=== PATIENT | female | born 1985 | race African-American/Black ===

== ENCOUNTER 2018-04-17 10:16 | Inpatient (IN) | payer OTHER ==
[2018-04-17 12:10] LABS: ADD MAN DIFF? NO
[2018-04-17] MEDS ORDERED: MIDAZOLAM 1 MG/ML 2 ML INJ (12:13)
[2018-04-17] MEDS ORDERED: METOCLOPRAMIDE 10 MG INJ (12:13)
[2018-04-17] MEDS ORDERED: ONDANSETRON 4 MG INJ (12:13)
[2018-04-17] MEDS ORDERED: ROCURONIUM 50 MG INJ (12:13)
[2018-04-17] MEDS ORDERED: PROPOFOL 20 ML ×2 (12:13→13:57)
[2018-04-17 12:21] LABS: BASOPHILS % 0.4 % (0.0-2.0); EOSINOPHILS # 0.1 10^3/ul (0.0-0.5); EOSINOPHILS % 0.7 % (0.0-7.0); HEMATOCRIT 41.3 % (37.0-47.0); HEMOGLOBIN 13.8 g/dl (12.0-16.0); LYMPHOCYTES # 2.5 10^3/ul (0.8-2.9); MEAN CORPUSCULAR HEMOGLOBIN 31.3 pg (29.0-33.0); MEAN CORPUSCULAR HGB CONC 33.4 g/dl (32.0-37.0); MEAN CORPUSCULAR VOLUME 93.7 fl (82.0-101.0); MEAN PLATELET VOLUME 11.8 fl (7.4-10.4); MONOCYTE # 0.5 10^3/ul (0.3-0.9); MONOCYTES % 6.3 % (0.0-11.0); NEUTROPHILS % 61.4 % (39.0-77.0); PLATELET COUNT 210 10^3/UL (140-415); RED BLOOD COUNT 4.41 10^6/ul (4.20-5.40); RED CELL DISTRIBUTION WIDTH 11.9 % (11.5-14.5)
[2018-04-17 12:21] LABS: WHITE BLOOD COUNT 8.2 10^3/ul (4.8-10.8)
[2018-04-17] MEDS ORDERED: CEFAZOLIN 1 GM INJ (12:23)
[2018-04-17] MEDS ORDERED: FENTAnyl 50 MCG/ML VIAL (12:30)
[2018-04-17 12:36] LABS: ALANINE AMINOTRANSFERASE 25 IU/L (13-69); ALBUMIN 3.7 g/dl (3.3-4.9); ALBUMIN/GLOBULIN RATIO 1.15; ALKALINE PHOSPHATASE 69 IU/L (42-121); ANION GAP 11 (8-16); ASPARTATE AMINO TRANSFERASE 24 IU/L (15-46); BILIRUBIN,INDIRECT 0.2 mg/dl (0-1.1); BILIRUBIN,TOTAL 0.2 mg/dl (0.2-1.3); BLOOD UREA NITROGEN 9 mg/dl (7-20); CALCIUM 8.9 mg/dl (8.4-10.2); CARBON DIOXIDE 21 mmol/L (21-31); CHLORIDE 112 mmol/L (97-110); CREATININE 0.63 mg/dl (0.44-1.00); GLUCOSE 86 mg/dl (70-220); POTASSIUM 3.8 mmol/L (3.5-5.1); SODIUM 140 mmol/L (135-144); TOTAL PROTEIN 6.9 g/dl (6.1-8.1)
[2018-04-17 12:38] LABS: INR 0.93; PROTIME 12.6 Sec (11.9-14.9)
[2018-04-17 12:39] LABS: PARTIAL THROMBOPLASTIN TIME 32.4 Sec (25.0-35.0)
[2018-04-17] MEDS ORDERED: LABETALOL HCL 20MG INJ (12:45)
[2018-04-17] MEDS ORDERED: THROMBIN 5000 UNIT VIAL (12:53)
[2018-04-17] MEDS ORDERED: HYDROmorphONE 2 MG/ML SYG (12:54)
[2018-04-17 12:58] LABS: ADD UMIC YES; UR ASCORBIC ACID NEGATIVE (NEGATIVE); UR BILIRUBIN (Dip) NEGATIVE (NEGATIVE); UR BLOOD (Dip) 3+ mg/dL (NEGATIVE); UR CLARITY CLEAR (CLEAR); UR COLOR YELLOW (YELLOW); UR GLUCOSE (Dip) NEGATIVE (NEGATIVE); UR KETONES (Dip) NEGATIVE (NEGATIVE); UR LEUKOCYTE ESTERASE (Dip) NEGATIVE Leu/ul (NEGATIVE); UR MUCUS FEW /HPF (NONE SEEN); UR NITRITE (Dip) NEGATIVE (NEGATIVE); UR RBC 0 /HPF (0-5); UR SPECIFIC GRAVITY (Dip) 1.024 (1.003-1.030); UR SQUAMOUS EPITHELIAL CELL FEW /HPF (FEW); UR TOTAL PROTEIN (Dip) NEGATIVE (NEGATIVE); UR UROBILINOGEN (Dip) 1+ mg/dL (NEGATIVE); UR WBC 1 /HPF (0-5)
[2018-04-17] MEDS: LIDOCAINE 1%/EPI 30 ML INJ (13:03)
[2018-04-17] MEDS: GELATIN SIZE 100 SPONGE (13:03)
[2018-04-17] MEDS: POLYMYXIN/BACITRACIN 1L IRRIG IRR (13:03)
[2018-04-17] MEDS: THROMBIN 5000 UNIT VIAL (13:03)
[2018-04-17] MEDS ORDERED: GLYCOPYRROLATE 0.4 MG INJ (13:53)
[2018-04-17] MEDS ORDERED: NEOSTIGMINE 3 MG/3 ML SYRINGE (13:53)
[2018-04-17] MEDS ORDERED: LIDOCAINE 2% (SDV) 5 ML INJ (13:57)
[2018-04-17] MEDS ORDERED: ONDANSETRON 4 MG INJ IV ×2 (14:00→14:30)
[2018-04-17] MEDS ORDERED: HYDROCODONE/APAP (10/325) TAB NGT (14:00)
[2018-04-17] MEDS ORDERED: HYDROmorphONE 1 MG/5 ML IV SYRINGE IV ×2 (14:19→14:30)
[2018-04-17] MEDS: HYDROmorphONE 1 MG/5 ML IV SYRINGE IV ×3 (14:30→15:00)
[2018-04-17] MEDS: DIPHENHYDRAMINE 50 MG INJ IV ×2 (14:30→22:32)
[2018-04-17] MEDS: MEPERIDINE 25 MG INJ IV (15:05)
[2018-04-17] MEDS ORDERED: HYDROmorphONE 0.2 MG/ML PCA (15:26)
[2018-04-17] MEDS: CEFAZOLIN 1 GM/50 ML (PMX) 50 ML IVPB ×2 (15:33→21:04)
[2018-04-17] MEDS: HYDROmorphONE 0.2 MG/ML PCA IV (15:46)
[2018-04-17] MEDS ORDERED: HYDROmorphONE 0.2 MG/ML PCA IV (16:00)
[2018-04-17] MEDS ORDERED: OXYCODONE/ACETAMINOPHEN (5/325) TAB PO (16:00)
[2018-04-17] MEDS ORDERED: NALOXONE (0.4 MG/ML) INJ IV (16:00)
[2018-04-17] MEDS: DEXTROSE 5%-LR 1,000 ML IV (16:14)
[2018-04-17] MEDS: DEXAMETHASONE 4 MG/ML 1 ML INJ IV (17:55)
[2018-04-17] MEDS: ONDANSETRON 4 MG INJ IV (19:05)
[2018-04-17] MEDS: morphine 1 MG/ML 30 ML (PCA) IV (19:40)
[2018-04-18] MEDS: DEXAMETHASONE 4 MG/ML 1 ML INJ IV ×4 (00:35→18:35)
[2018-04-18] MEDS: DEXTROSE 5%-LR 1,000 ML IV ×2 (01:31→14:19)
[2018-04-18] MEDS: CEFAZOLIN 1 GM/50 ML (PMX) 50 ML IVPB ×2 (05:13→14:18)
[2018-04-18] MEDS: DIPHENHYDRAMINE 50 MG INJ IV ×2 (05:13→20:56)
[2018-04-18] MEDS: morphine 1 MG/ML 30 ML (PCA) IV (10:16)
[2018-04-18] MEDS: OXYCODONE/ACETAMINOPHEN (5/325) TAB PO ×2 (15:40→19:26)
[2018-04-19] MEDS: OXYCODONE/ACETAMINOPHEN (5/325) TAB PO ×5 (00:50→19:36)
[2018-04-19 05:43] LABS: ADD MAN DIFF? NO
[2018-04-19 05:48] LABS: BASOPHILS % 0.1 % (0.0-2.0); HEMATOCRIT 37.5 % (37.0-47.0); HEMOGLOBIN 12.6 g/dl (12.0-16.0); LYMPHOCYTES # 3.1 10^3/ul (0.8-2.9); LYMPHOCYTES % 21.2 % (15.0-51.0); MEAN CORPUSCULAR HGB CONC 33.6 g/dl (32.0-37.0); MEAN CORPUSCULAR VOLUME 92.1 fl (82.0-101.0); MEAN PLATELET VOLUME 12.1 fl (7.4-10.4); MONOCYTE # 1.2 10^3/ul (0.3-0.9); MONOCYTES % 7.8 % (0.0-11.0); NEUTROPHIL # 10.4 10^3/ul (1.6-7.5); NEUTROPHILS % 70.5 % (39.0-77.0); PLATELET COUNT 196 10^3/UL (140-415); RED BLOOD COUNT 4.07 10^6/ul (4.20-5.40)
[2018-04-19 05:48] LABS: WHITE BLOOD COUNT 14.8 10^3/ul (4.8-10.8)
[2018-04-19 06:39] LABS: ANION GAP 15 (8-16); BLOOD UREA NITROGEN 10 mg/dl (7-20); CALCIUM 9.2 mg/dl (8.4-10.2); CARBON DIOXIDE 22 mmol/L (21-31); CHLORIDE 107 mmol/L (97-110); GLUCOSE 108 mg/dl (70-220); POTASSIUM 3.7 mmol/L (3.5-5.1); SODIUM 140 mmol/L (135-144)
[2018-04-19] MEDS: DOCUSATE SODIUM 100 MG CAP PO ×2 (15:37→20:36)
[2018-04-19] MEDS: DIPHENHYDRAMINE 50 MG INJ IV ×2 (16:25→22:36)
[2018-04-19] MEDS: morphine 2 MG INJ IV (21:30)
[2018-04-20] MEDS: OXYCODONE/ACETAMINOPHEN (5/325) TAB PO ×4 (00:58→15:45)
[2018-04-20] MEDS: DOCUSATE SODIUM 100 MG CAP PO (08:58)
[2018-04-20] MEDS: ONDANSETRON 4 MG INJ IV (12:33)
[2018-04-20] MEDS: morphine 2 MG INJ IV (12:34)
[2018-04-20] MEDS: ACETAMINOPHEN 500 MG TAB PO (12:50)
[2018-04-20 13:24] LABS: ADD MAN DIFF? NO
[2018-04-20 13:27] LABS: BASOPHIL # 0.1 10^3/ul (0.0-0.1); BASOPHILS % 0.5 % (0.0-2.0); EOSINOPHILS # 0.1 10^3/ul (0.0-0.5); EOSINOPHILS % 1.2 % (0.0-7.0); HEMATOCRIT 40.7 % (37.0-47.0); HEMOGLOBIN 13.6 g/dl (12.0-16.0); LYMPHOCYTES % 48.2 % (15.0-51.0); MEAN CORPUSCULAR HEMOGLOBIN 30.7 pg (29.0-33.0); MEAN CORPUSCULAR HGB CONC 33.4 g/dl (32.0-37.0); MEAN CORPUSCULAR VOLUME 91.9 fl (82.0-101.0); MEAN PLATELET VOLUME 11.2 fl (7.4-10.4); MONOCYTE # 0.8 10^3/ul (0.3-0.9); MONOCYTES % 7.7 % (0.0-11.0); NEUTROPHIL # 4.4 10^3/ul (1.6-7.5); NEUTROPHILS % 42.3 % (39.0-77.0); PLATELET COUNT 213 10^3/UL (140-415); RED BLOOD COUNT 4.43 10^6/ul (4.20-5.40)
[2018-04-20 13:27] LABS: WHITE BLOOD COUNT 10.4 10^3/ul (4.8-10.8)
[2018-04-20 13:44] LABS: ANION GAP 12 (8-16); BLOOD UREA NITROGEN 9 mg/dl (7-20); CALCIUM 8.9 mg/dl (8.4-10.2); CARBON DIOXIDE 23 mmol/L (21-31); CHLORIDE 105 mmol/L (97-110); GLUCOSE 84 mg/dl (70-220); POTASSIUM 3.6 mmol/L (3.5-5.1); SODIUM 136 mmol/L (135-144)
== END 2018-04-20 16:10 | disposition home or self-care (01) | DRG 472 ==
LOC: REC 10:16 → MS1 16:00
PROC: 0RG10A0 Fusion of Cervical Vertebral Joint with Interbody Fusion Device, Anterior Approach, Anterior Column, Open Approach (ICD-10-PCS; principal; 2018-04-17 12:00)
PROC: 0PB30ZZ Excision of Cervical Vertebra, Open Approach (ICD-10-PCS; 2018-04-17 12:00)
DX: M50.021 Cervical disc disorder at C4-C5 level with myelopathy (principal); M47.12 Other spondylosis with myelopathy, cervical region; M50.121 Cervical disc disorder at C4-C5 level with radiculopathy; M47.22 Other spondylosis with radiculopathy, cervical region; M48.02 Spinal stenosis, cervical region
CPT/HCPCS: 72040; 80048; 80053; 81001; 84703; 85025; 85610; 85730; 86850; 86900; 86901; 87086; 93005; 97116; 97161; 97167; 97530